=== PATIENT | female | born 1990 | race Caucasian/White ===

== ENCOUNTER 2018-10-01 17:35 | Emergency (ER) | payer MEDICAID ==
[~2018-10-01] VITALS: Ht 160 cm; Wt 67.7 kg
[~2018-10-01 17:35] MED LIST: FAMO-96 PO; HYDR-4011 PO; IBUP-1541 PO; IBUP-1542 PO; ONDA4TAB14 PO; PREN1TAB62 PO
[2018-10-01 17:51] VITALS: BP 96/49; PULSE 72; RESP 20; Ht 160 cm; Wt 67.7 kg
--- NOTE | 2018-10-01 21:22 | ERD ---
ER Documentation Chief Complaint Chief Complaint vag bleed x 1 day preg 13 weeks HPI This is a 28-year-old female who states she is about 13 weeks and yesterday she had vaginal bleeding which was heavy. She went to [facility] today and they did an ultrasound and told her they were unable to hear heart tones so they recommended she come here for further evaluation. At this time she states she has mild pelvic pain but she states the vaginal bleeding has now stopped. She has no dysuria or frequency. No fever. No nausea or vomiting. ROS All systems reviewed and are negative except as per history of present illness. Medications Home Meds Active Scripts Ibuprofen* (Ibuprofen*) 400 Mg Tablet, 400 MG PO Q6H PRN for PAIN, #30 TAB Prov:MAGDALENA DAVDI PA-C 05/26/16 Ondansetron (Ondansetron Odt) 4 Mg Tab.rapdis, 4 MG PO Q6H PRN for NAUSEA AND/OR VOMITING, #10 TAB Prov:MAGDALENA DAVID PA-C 05/26/16 Hydrocodone/Acetaminophen ([place] 5-325 Tablet) 1 Each Tablet, 1 TAB PO Q6H PRN for PAIN, #7 TAB Prov:MAGDALENA DAVID PA-C 05/26/16 Hydrocodone/Acetaminophen ([place] 5-325 Tablet) 1 Each Tablet, 1 TAB PO Q6H PRN for PAIN, #20 TAB Prov:GABY OLIVAS 04/27/16 Ondansetron (Ondansetron Odt) 4 Mg Tab.rapdis, 4 MG PO Q6H PRN for NAUSEA AND/OR VOMITING, #10 TAB Prov:GABY OLIVAS 04/27/16 Famotidine* (Pepcid*) 20 Mg Tablet, 20 MG PO BID for 14 Days, TAB Prov:GABY OLIVAS 04/27/16 Ibuprofen* (Ibuprofen*) 600 Mg Tablet, 600 MG PO Q6, #20 TAB 0 Refills Prov:ALFONSO PINTO MD 02/17/16 Reported Medications Vit-Iron Fumarate-FA ( Vitamin Tablet) 1 Each Tablet, 1 TAB PO DAILY, TAB 02/16/16 Allergies Allergies: Coded Allergies: No Known Allergy (Unverified , 02/16/16) PMhx/Soc Anesthesia Reaction: No Hx Neurological Disorder: No Hx Respiratory Disorders: No Hx Cardiac Disorders: No Hx Psychiatric Problems: No Hx Miscellaneous Medical Probl: No Hx Alcohol Use: No Hx Substance Use: No Hx Tobacco Use: No Smoking Status: Never smoker FmHx Family History: No diabetes Physical Exam Vitals Vital Signs Date Temp Pulse Resp B/P (MAP) Pulse Ox O2 O2 Flow FiO2 Time Delivery Rate 10/01/18 97.1 72 20 96/49 (65) 100 17:51 Physical Exam INITIAL VITAL SIGNS: Reviewed by me GENERAL: Awake, alert and oriented x 4, well appearing, nontoxic, speaking in full sentences. No acute distress HEAD: Atraumatic NECK: Supple. No masses. Full range of motion. No meningismus. No midline tenderness. RESPIRATORY: Clear to auscultation bilaterally. Symmetric chest wall rise. No wheezing or rales. No accessory muscle use. CV: Regular rate and rhythm. No murmurs, rubs, or gallops. ABDOMEN: Soft, non-distended. Nontender. Negative [place]. Negative [place] point tenderness. No CVA tenderness bilaterally. No guarding. No rebound. : Deffered. Result Diagram: 10/01/182026 Results 24 hrs Laboratory Tests Test 10/01/18 20:23 10/01/18 20:27 Urine Color YELLOW Urine Clarity CLEAR Urine pH 7.0 Urine Specific [place] 1.012 Urine Ketones NEGATIVE mg/dL Urine Nitrite NEGATIVE mg/dL Urine Bilirubin NEGATIVE mg/dL Urine Urobilinogen 1+ mg/dL Urine Leukocyte Esterase NEGATIVE Eliud/ul Urine Microscopic RBC 0 /HPF Urine Microscopic WBC 4 /HPF Urine Squamous Epithelial Cells FEW /HPF Urine Hemoglobin 2+ mg/dL Urine Glucose NEGATIVE mg/dL Urine Total Protein NEGATIVE mg/dl White Blood Count 9.5 10^3/ul Red Blood Count 4.06 10^6/ul Hemoglobin 11.9 g/dl Hematocrit 36.3 % Mean Corpuscular Volume 89.4 fl Mean Corpuscular Hemoglobin 29.3 pg Mean Corpuscular Hemoglobin Concent 32.8 g/dl Red Cell Distribution Width 12.6 % Platelet Count 272 10^3/UL Mean Platelet Volume 10.0 fl Immature Granulocytes % 0.300 % Neutrophils % 78.8 % Lymphocytes % 14.8 % Monocytes % 5.0 % Eosinophils % 1.0 % Basophils % 0.1 % Nucleated Red Blood Cells % 0.0 /100WBC Immature Granulocytes # 0.030 10^3/ul Neutrophils # 7.5 10^3/ul Lymphocytes # 1.4 10^3/ul Monocytes # 0.5 10^3/ul Eosinophils # 0.1 10^3/ul Basophils # 0.0 10^3/ul Nucleated Red Blood Cells # 0.0 10^3/ul Procedures/MDM Patient had vaginal bleeding yesterday and then today the [facility] could not hear heart tones. However ultrasound today was normal with single IUP at 14 weeks 4 days and heart tones were heard. The rest of her workup is unremarkable. She was given copies of the results she can follow-up with primary care. Patient counseled regarding my diagnostic impression and care plan. Prior to discharge all questions answered. Pt agrees with treatment plan and understands strict return precautions. Pt is instructed to follow up with primary care provider within 24-48 hours. Precautionary instructions provided including instructions to return to the ER if not improving or for any worsening or changing symptoms or concerns. Departure Diagnosis: Primary Impression: Threatened Condition: Stable Patient Instructions: Possible Miscarriage (Threatened ) Additional Instructions: Llame al doctor ALESSANDRA y rivas abdiel SANDER PARA DENTRO DE 1-2 ERICKSON.Dgale a la secretaria que nosotros le instruimos hacer esta sander.Avise o llame si hwang condicin se empeora antes de la sander. Regresa aqui si peor o no mejor. SEBASTIAN GUILLAUME PA-C Oct 01, 2018 21:22
== END 2018-10-01 21:33 | disposition home or self-care (01) ==
LOC: FTE 17:35
DX: O20.0 Threatened abortion (principal); R10.2 Pelvic and perineal pain; Z3A.14 14 weeks gestation of pregnancy
CPT/HCPCS: 36415; 76805; 81001; 84702; 85025; 86900; 86901

== ENCOUNTER 2019-03-30 17:53 | Inpatient (IN) | payer MEDICAID ==
[~2019-03-30] VITALS: Ht 152.4 cm; Wt 72.4 kg
[2019-03-30 18:03] VITALS: Ht 152.4 cm; Wt 72.4 kg
[2019-03-30 18:04] VITALS: BP 125/78; PULSE 63; RESP 20
[2019-03-30] MEDS ORDERED: LACTATED RINGER'S 1,000 ML IV SCH (18:05)
[2019-03-30] MEDS ORDERED: AMPICILLIN 2 GM/NS (PMX) 100 ML ONE (18:24)
[2019-03-30] MEDS ORDERED: CARBOPROST 250 MCG INJ IM PRN ×2 (18:30→21:30)
[2019-03-30] MEDS ORDERED: METHYLERGONOVINE 0.2 MG INJ IM PRN ×2 (18:30→21:30)
[2019-03-30] MEDS ORDERED: OXYTOCIN 30 UNITS/LR 500 ML IV SCH ×2 (18:30)
[2019-03-30] MEDS ORDERED: OXYTOCIN 30 UNITS/LR 500 ML IV PRN ×2 (18:30→21:30)
[2019-03-30] MEDS ORDERED: LIDOCAINE 1% (MPF) 30 ML INJ INJ PRN (18:30)
[2019-03-30] MEDS ORDERED: MISOPROSTOL 200 MCG TAB PR PRN ×2 (18:30→21:30)
[2019-03-30] MEDS ORDERED: AMPICILLIN 2 GM/NS (PMX) 100 ML IV ONE (18:30)
[2019-03-30] MEDS ORDERED: BUTORPHANOL 2 MG INJ IV PRN ×2 (18:30)
[2019-03-30] MEDS ORDERED: IBUPROFEN 600 MG TAB PO PRN (18:30)
[2019-03-30] MEDS ORDERED: ACETAMINOPHEN 500 MG TAB PO STA (18:43)
[2019-03-30] MEDS ORDERED: KETOROLAC 30 MG INJ IV STA (18:43)
[2019-03-30 20:45] VITALS: BP 120/65; PULSE 68; RESP 20
[2019-03-30 21:15] VITALS: BP 126/69; PULSE 66; RESP 18
[2019-03-30] MEDS ORDERED: DIBUCAINE 1% 30 GM OINT TOP PRN (21:30)
[2019-03-30] MEDS ORDERED: BENZOCAINE 20% 56 ML SPRAY TOP PRN (21:30)
[2019-03-30] MEDS ORDERED: WITCH HAZEL/GLYCERIN PAD PR PRN (21:30)
[2019-03-30] MEDS ORDERED: ZOLPIDEM 5 MG TAB PO PRN (21:30)
[2019-03-30] MEDS ORDERED: HYDROCODONE/APAP (5/325) TAB PO PRN (21:30)
[2019-03-30] MEDS ORDERED: AMPICILLIN 1 GM/NS (PMX) 50 ML IV SCH (22:30)
[2019-03-30] MEDS: LACTATED RINGER'S 1,000 ML IV* SCH (22:44)
[2019-03-31] VITALS: BP 116/60; PULSE 71; RESP 18
[2019-03-31] MEDS: IBUPROFEN 600 MG TAB PO SCH ×4 (00:08→18:11)
[2019-03-31] MEDS: LANOLIN HPA 1 PKT TOP PRN (00:08)
[2019-03-31 04:10] VITALS: BP 99/53; PULSE 65; RESP 18
[2019-03-31] MEDS: LACTATED RINGER'S 1,000 ML IV* SCH ×3 (05:08→21:08)
[2019-03-31 08:00] VITALS: BP 92/53; PULSE 63; RESP 16
[2019-03-31] MEDS: SENNA/DOCUSATE NA (8.6MG/50MG) TAB PO SCH ×2 (08:25→21:31)
[2019-03-31] MEDS: MAGNESIUM HYDROXIDE 30ML CUP PO SCH ×2 (08:25→21:31)
[2019-03-31 12:00] VITALS: BP 97/50; PULSE 64; RESP 16
[2019-03-31 16:25] VITALS: BP 117/57; PULSE 64; RESP 16
[2019-03-31 20:10] VITALS: BP 127/56; PULSE 67; RESP 18
[2019-04-01] MEDS: IBUPROFEN 600 MG TAB PO SCH ×4 (00:17→17:58)
[2019-04-01 04:00] VITALS: BP 99/51; PULSE 65; RESP 17
[2019-04-01 08:00] VITALS: BP 105/55; PULSE 64; RESP 18
[2019-04-01] MEDS ORDERED: VARICELLA VACCINE LIVE/PF 1,350 UNIT/0.5 ML ML SC* ONE (09:00)
[2019-04-01] MEDS ORDERED: MEASLES,MUMPS,RUBELLA VACCINE INJ SC* ONE (09:00)
[2019-04-01] MEDS ORDERED: DIPHTH/TET/ACEL PERTUSS (ADULT) 0.5 ML VIAL IM* ONE (09:00)
[2019-04-01] MEDS: SENNA/DOCUSATE NA (8.6MG/50MG) TAB PO SCH (09:41)
[2019-04-01] MEDS: LANOLIN HPA 1 PKT TOP PRN (09:41)
[2019-04-01] MEDS: MAGNESIUM HYDROXIDE 30ML CUP PO SCH (09:41)
[2019-04-01 16:00] VITALS: BP 97/50; PULSE 66; RESP 17
== END 2019-04-01 19:20 | disposition home or self-care (01) | DRG 807 ==
LOC: OBT 17:53 → L-D 17:54 → OBT 18:00 → L-D 18:00 → PP1 20:27
PROVIDERS: ADMIT Obstetrics & Gynecology; ATTEND Obstetrics & Gynecology
PROC: 10E0XZZ Delivery of Products of Conception, External Approach (ICD-10-PCS; principal; 2019-03-30)
PROC: 3E033VJ Introduction of Other Hormone into Peripheral Vein, Percutaneous Approach (ICD-10-PCS; 2019-03-30)
DX: O65.5 Obstructed labor due to abnormality of maternal pelvic organs (principal); Z37.0 Single live birth; O34.211 Maternal care for low transverse scar from previous cesarean delivery; Z3A.39 39 weeks gestation of pregnancy
CPT/HCPCS: 85025; 85610; 85730; 86592; 86850; 86900; 86901; 87340; 90716; G0463; J0290; J2590; J7120